=== PATIENT | female | born 1970 | race Caucasian/White ===

== ENCOUNTER 2025-04-26 06:27 | Day surgery (SDC) | payer BC, OTHER ==
[2025-04-26] MEDS ORDERED: fentaNYL 50 MCG/ML SDV ONE (07:00)
[2025-04-26] MEDS ORDERED: Propofol 200 MG/20 ML SDV ONE (07:00)
[2025-04-26] MEDS ORDERED: Midazolam 1 MG/ML 2 ML SDV ONE (07:00)
[2025-04-26] MEDS: Lactated Ringers 1,000 ML IV SCH (07:19)
== END 2025-04-26 09:35 | disposition home or self-care (01) ==
LOC: JP.SDS 06:27
PROVIDERS: ATTEND Surgery
DX: K29.50 Unspecified chronic gastritis without bleeding (principal); K21.9 Gastro-esophageal reflux disease without esophagitis; R13.10 Dysphagia, unspecified
CPT/HCPCS: 00731; 43239; 88305; J2250; J2704; J3010; J7120